=== PATIENT | male | born 1955 | race Caucasian/White ===

== ENCOUNTER → 2017-01-08 | Outpatient (CLI) | payer BC ==
--- OUTSIDE RECORDS SUMMARY | 2017-01-08 07:03 | XMS REPORT ---
Author Author Slade Mena Organization Unknown Address [address] [place], [place] [id number] Phone Care Team Providers Care Vice President Of Development Name Role Phone Radha Mena PP Reason for Referral No Reason for Referral was given. History of Present Illness No HPI available. Problems Normal Routine History And Physical Adult (V70.0); (Active) Actinic Keratosis (702.0); (Active) Medication TraMADol HCl 50 MG Oral Tablet; Start Date: 03/07/2010 (Active) Allergies and Adverse Reactions No Known Drug Allergies (Active) Past Medical History No Significant Medical History Vital Signs Date Description Test Result 27 Dec 2012 01:36 PM recorded by: Nicole Whitaker Height 74 in Weight 169 lb Body Mass Index Calculated 21.69 Body Surface Area Calculated 2.02 BP Systolic 130 mm[Hg] BP Diastolic 68 mm[Hg] Heart Rate 64 /min Pulse Regular Resipration Rate 16 /min Physical Findings; Comments: comm vision glasses rt 20/30 left 20/20 b 20/20 Advance Directives No Advance Directives available. Encounters Appointment 12/27/2012
--- NOTE | 2017-01-08 08:10 | Diagnostic Imaging Report ---
INDICATION: Sheet metal exposure to the eyes. FINDINGS: AP view orbits does not show any radiopaque foreign objects in or around the orbits. There are postop changes from left craniotomy with fixation. IMPRESSION: There are no radiopaque foreign objects seen in the orbits. Dictated by: Dictated on workstation # [id number]
--- NOTE | 2017-01-08 10:26 | Diagnostic Imaging Report ---
PROCEDURE: CT chest pelvis with and abdomen with and without contrast. TECHNIQUE: Multiple contiguous axial images were obtained through the chest, abdomen and pelvis after uneventful bolus administration of intravenous contrast. Precontrast acquisitions were acquired through the abdomen. INDICATION: Lung cancer. AVAILABLE COMPARISONS: None. Thorax: A 2.1-cm enlarged right supraclavicular lymph node is present. A second lymph node is visible to that just lateral to the right thyroid lobe measuring 2.0 cm. Pathologically enlarged lymph node is visible, right upper paratracheal region, measuring 2.1 x 3.7 cm. Lower right paratracheal lymph node is present measuring 2.3 x 2.1 cm. Subcarinal lymph node mass is present measuring 5.2 x 2.5 cm. Right hilar mass is present measuring 2.4 x 4.3 cm. Axillary lymph nodes are negative. There is no adenopathy in the prevascular space or left paratracheal region. A couple of lymph nodes are visible in the AP window which are top normal size. A small amount of pericardial fluid and/or thickening is present anteriorly. There is no pleural effusion. Severe centrilobular emphysema is present. Areas of calcified pleural parenchymal disease are present bilaterally. There is no osteolytic or osteoblastic lesion. IMPRESSION: 1. Right cervical and supraclavicular adenopathy. Right hilar and mediastinal adenopathy consistent with neoplasm. 2. 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 Abdomen pelvis: Comparison: None. The liver shows no focal lesion. The spleen is negative. The adrenal glands are negative. The pancreas is negative. The kidneys showed no mass or hydronephrosis. A couple of small nonobstructing left renal calculi are present. There are no pathologically enlarged lymph nodes in the gastrohepatic or gastrosplenic ligament. Retroperitoneal lymph nodes are negative. There is a retroaortic left renal vein. Slight ectasia of the mid abdominal aorta is present 228 mm. Images through the pelvis show no pelvic mass or lymphadenopathy. IMPRESSION: Negative for metastasis or other significant abnormality. Small nonobstructing left renal calculus. Dictated by: Dictated on workstation # [id number]
--- NOTE | 2017-01-08 11:28 | Diagnostic Imaging Report ---
PROCEDURE: MR imaging of the brain with and without contrast. TECHNIQUE: Multiplanar, multisequence MR imaging of the brain was performed with and without contrast. Exam is somewhat limited by patient motion. INDICATION: Lung cancer. Size of the cerebroventricular system is normal. There is no shift of midline anatomic structures. Mild white matter disease is present. Kathy and cerebellum are negative. There is left sphenoid sinusitis change. There is a lesion in the left temporal occipital region measuring approximately 2.0 x 3.0 x 1.6 cm. This area consists of isointensity on T1 images with peripheral T1 hypointensity and peripheral T2 hypointensity. Most of it is T2 hyperintense. It has had paramagnetic susceptibility change at the superior aspect. There is some paramagnetic susceptibility change in the left temporal occipital calvarium seen on the gradient echo sequence. With administration of intravenous contrast, there is mild enhancement of the inferior margin of the lesion with slight peripheral enhancement. There are no other enhancing lesions identified. IMPRESSION: 1. Focal lesion, left temporal occipital region containing blood degradation products. This is consistent with a resected tumor. The residual enhancement may be postoperative related rather than residual tumor. Followup with MRI. 2. No other lesions are identified. Dictated by: Dictated on workstation # [id number]
== END ==
LOC: UNDOADMIN 06:58 → MED/SURG 06:58 → EDSTATUS 07:00 → RAD 07:01
PROVIDERS: ATTEND Internal Medicine Hematology & Oncology
DX: C34.01 Malignant neoplasm of right main bronchus (principal); J43.8 Other emphysema
CPT/HCPCS: 70140; 70553; 71260; 74178; A9579; Q9967